=== PATIENT | male | born 1965 | race Caucasian/White ===

== ENCOUNTER → 2016-08-14 | Outpatient (CLI) | payer OTHER ==
--- NOTE | 2016-08-14 18:10 | RAD ---
HISTORY: Pain Study: Rest C-spine series Comparison: None Findings: Normal alignment of the thoracic spine is maintained. The disk space height is maintained without s ignificant endplate sclerosis. No evidence for acute fracture can be identified. IMPRESSION: 1. Negative exam. Reported By:
--- NOTE | 2016-08-14 18:12 | RAD ---
HISTORY: Pain Study: Lumbar spine series Comparison: None Findings: There is mild disc space narrowing throughout which is most prominent at L5-S1. There are mild scler otic changes of the facets inferiorly with no pars defects. The vertebral body height is well mainta ined throughout. The pedicles are intact. The bones are well mineralized. IMPRESSION: Mild degenerative disk changes throughout the lower lumbar spine and moderate osteoarthritic changes of the facets inferiorly with no acute abnormality seen. Reported By:
== END | disposition home or self-care (01) ==
LOC: RAD 17:17
PROVIDERS: ATTEND Nurse Practitioner Family
DX: M54.6 Pain in thoracic spine (principal); R25.8 Other abnormal involuntary movements; M51.9 Unspecified thoracic, thoracolumbar and lumbosacral intervertebral disc disorder
CPT/HCPCS: 72072; 72110

== ENCOUNTER → 2016-09-06 | Outpatient (CLI) | payer OTHER ==
--- NOTE | 2016-09-06 12:07 | MRI ---
HISTORY: Low back pain bilateral lower extremity weakness Study: MRI lumbar spine without contrast Comparison: Plain films August 14, 2016 Technique: Multiplanar multi-sequence MRI of the lumbar spine was obtained. Sagittal T1, sagittal T 2, and stir weighted images, axial T1, and axial T2 images were obtained. Findings: The lumbar spine demonstrates normal alignment with the expected signal characteristics of the bone marrow. The conus of the cord terminates normally. T12 -- L1: No evidence for compressive disc disease. The neural foramina are patent. The joints are normal. L1 -- L2: No evidence for compressive disc disease. The neural foramina are patent. The joints are n ormal. L2 -- L3: No evidence for compressive disc disease. The neural foramina are patent. The joints are n ormal. L3 -- L4: No evidence for compressive disc disease. The neural foramina are patent. The joints are n ormal. L4 -- L5: There is mild circumferential disc bulging which contributes along with pedicular shorteni ng and mild facet arthropathy to lateral recess and foraminal narrowing on the right and moderate la teral recess narrowing on the left. L5 -- S1: No evidence for compressive disc disease. The neural foramina are patent. The joints are n ormal. IMPRESSION: As above Reported By:
--- NOTE | 2016-09-06 12:13 | MRI ---
HISTORY: Thoracic spine pain, disk degeneration, lower extremity weakness Study: MRI thoracic spine without contrast Comparison: None Technique: Multi planar multi sequence non contrast imaging and diffusion imaging Findings: The prevertebral soft tissues are normal. The vertebral body alignment and bone signal is normal. Th e intervertebral discs are well hydrated. The thoracic spinal cord is normal in size and configurati on and without foci of abnormal signal or syrinx. The joints are normal. There is a focal leftward d isc protrusion at T6-7 which contributes to some foraminal narrowing on the left. There is a noncomp ressive disc protrusion at T7-8. No other disc protrusions are identified. No compressive spondyliti c change is identified. IMPRESSION: Focal leftward disc protrusion at T6 which causes some mild foraminal narrowing on the left. No other significant findings Reported By:
== END | disposition home or self-care (01) ==
LOC: RAD 08:42
PROVIDERS: ATTEND Nurse Practitioner Family
DX: M51.36 Other intervertebral disc degeneration, lumbar region (principal); M51.24 Other intervertebral disc displacement, thoracic region
CPT/HCPCS: 72146; 72148

== ENCOUNTER 2017-04-17 14:43 | Inpatient (IN) | payer OTHER ==
--- NOTE | 2017-04-17 18:45 | DR.H&P ---
H&P - History & Physical for Day of: H&P Date: 04/17/17 - Chief Complaint Chief Complaint: lilly, weakness, hypertension, dizziness, syncope - Allergies Allergies/Adverse Reactions: Allergies Allergy/AdvReac Type Severity Reaction Status Date / Time carisoprodol [From [facility]] Allergy Verified 04/17/17 18:37 Penicillins Allergy Verified 04/17/17 18:37 - History of Present Illness History of Present Illness: PT IS 51WM DIRECT ADMIT FROM DR BAUTISTA OFFICE WITH SYMPOMATIC CAROTID ARTERY STENOSIS. PT RECENTLY HAD TIA IN JANUARY WITH CONTIUED DIZZINESS WITH VISION CHANGES. PT HAD CAROTID ARTERY US IN OFFICE WITH HIGH GRADE STENOSIS. PT HAD PMH OF HTN, HYPERLIPIDEMIA, OA, GERD. PLAN TO ADMIT FOR TREATMENT AND EVALUATION OF ACUTE ILLNESS. - Past Medical History Past Medical History: Anxiety, Arthritis, COPD, GERD, Hypertension - Family History Family Medical History: Diabetes Mellitus, [place], Coronary Artery Disease, Hypertension - Social History Does patient currently use any type of tobacco product: Yes Have you used tobacco products in the last 12 months: Yes Type of Tobacco Use: Cigarettes Does any household member use tobacco: No Alcohol Use: None Drug Use: None - Review of Systems Constitutional: Weakness Eyes: Vision Change ENT: No Symptoms Reported Respiratory: Shortness of Breath, SOB with Excertion Cardiovascular: Chest Pain, Light Headedness Gastrointestinal: No Symptoms Reported Genitourinary: No Symptoms Reported Musculoskeletal: Back Pain, Neck Pain Skin: No Symptoms Reported Neurological: Other (DIZZINESS) - Physical Exam Vital Signs: Pulse Rate [Bilateral Radial] 96 Respiratory Rate 15 Blood Pressure [Left Arm] 135/73 Oriented: Normal Eyes: Normal Ear: Normal Nose: Normal Throat: Normal Respiratory: RLL Diminished, LLL Diminished Cardiovascular: Normal, Edema : Normal Auscultation: Bowel Sounds: Normal Palpation: Normal Tenderness: Normal Skin: Normal Musculoskeletal: Right, Left, Knee, Back:Thoracic, Back:Lumbar Psychiatric: Anxiety Affect: Anxious Speech Pattern: Clear, Appropriate - Assessment/Plan (1) TIA (transient ischemic attack) Status: Acute Plan: ADMIT ICU, CT HEAD, CTA CAROTID ARTERIES, SERIAL CARIDAC ENZYMES. EKG, TELEMETRY, PLAVIX AND ASA. BP CONTROL, LIPID CONTROL. RESUME HOME MEDS. NPO UNTIL AFTER DIAGNOSTIC TESTS. SUPPLEMENTAL O2 (2) TIA involving carotid artery Status: Acute (3) Hypertension Status: Acute (4) Chest pain Status: Acute (5) Arthritis Status: Acute
[2017-04-17 19:04] LABS: BASOPHILS # (AUTO) 0.1 X10^3/uL (0.0-0.1); BASOPHILS % (AUTO) 0.8 % (0.2-1.0); EOSINOPHILS # (AUTO) 0.1 x10^3/uL (0.0-0.2); EOSINOPHILS % (AUTO) 1.3 % (0.9-2.9); HEMATOCRIT 41.3 % (42.0-54.0); HEMOGLOBIN 14.3 g/dL (13.5-18.0); LYMPHOCYTES # (AUTO) 3.7 X10^3/uL (1.3-2.9); LYMPHOCYTES % (AUTO) 36.9 % (21.0-51.0); MEAN CORPUSCULAR HEMOGLOBIN 30.7 pg (27.0-34.0); MEAN CORPUSCULAR HGB CONC 34.6 g/dL (33.0-35.0); MEAN CORPUSCULAR VOLUME 88.7 fL (80.0-100.0); MEAN PLATELET VOLUME 8.5 fL (7.4-11.0); MONOCYTES # (AUTO) 0.8 x10^3/uL (0.3-0.8); MONOCYTES % (AUTO) 8.3 % (0.0-13.0); NEUTROPHILS # (AUTO) 5.2 x10^3/uL (2.2-4.8); NEUTROPHILS % (AUTO) 52.7 % (42.0-75.0); PLATELET COUNT 228 X10^3/uL (150.0-450.0); RED BLOOD COUNT 4.65 X10^6/uL (4.7-6.0); RED CELL DISTRIBUTION WIDTH 13.1 % (11.6-16.5); WHITE BLOOD COUNT 9.9 X10^3/uL (3.6-10.0)
[2017-04-17] MEDS: PLAVIX PO SCH (19:21)
[2017-04-17] MEDS: ASPIRIN PO SCH (19:21)
[2017-04-17] MEDS: LYRICA CAP 75 MG PO SCH ×2 (19:22→21:03)
[2017-04-17 19:24] LABS: BLOOD UREA NITROGEN 12 mg/dL (7-18); CALCIUM 8.7 mg/dL (8.5-10.1); CARBON DIOXIDE 28.5 mmol/L (21-32); CHLORIDE 101 mmol/L (98-107); COR NA(FOR HYPERGLY) 139 mmol/L (136-145); CREATININE 1.06 mg/dL (0.70-1.30); SODIUM 139 mmol/L (136-145); TROPONIN I < 0.02 ng/mL (0-1.5); eGFR BLACK RACES > 60 (>60); eGFR NON BLACK RACES > 60 (>60)
[2017-04-17 19:28] LABS: ALANINE AMINOTRANSFERASE 35 Units/L (12-78); ALBUMIN 3.9 g/dL (3.4-5.0); ALKALINE PHOSPHATASE 38 Units/L (46-116); ASPARTATE AMINO TRANSFERASE 21 Units/L (15-37); CKMB % 0.6 % (<4); CREATINE KINASE 188 Units/L (39-308); CREATINE KINASE MB 1.1 ng/mL (0-4.0); MAGNESIUM 1.9 mg/dL (1.7-2.9)
--- NOTE | 2017-04-17 19:52 | RAD ---
HISTORY: Chest pain, dizziness Study: Single-view of the chest Comparison: None Findings: The trachea is midline. The cardiac silhouette is at the upper limits of normal. The lungs are darcie r without focal infiltrate or effusion. IMPRESSION: 1. No acute cardiopulmonary disease. Reported By:
[2017-04-17 19:53] LABS: BILIRUBIN,URINE NEGATIVE (NEGATIVE); BLOOD/HEMOGLOBIN,URINE 1+ (NEGATIVE); GLUCOSE, URINE NEGATIVE (NEGATIVE); KETONES,URINE NEGATIVE (NEGATIVE); LEUKOCYTE ESTERASE ,URINE NEGATIVE (NEGATIVE); NITRITES,URINE NEGATIVE (NEGATIVE); PH,URINE 6.5 (5.0 - 8.0); PROTEIN,URINE NEGATIVE (NEGATIVE); UROBILINOGEN,URINE NORMAL (NORMAL)
[2017-04-17 20:06] LABS: APPEARANCE,URINE CLEAR (CLEAR); COLOR,URINE YELLOW (YELLOW); RBC,URINE 0-3 /HPF (NONE SEEN)
[2017-04-17 20:07] LABS: BACTERIA,URINE NEGATIVE /HPF (NEGATIVE); SQUAMOUS EPITHELIAL CELL,UR RARE /HPF (NEGATIVE)
[2017-04-17] MEDS: PERCOCET TAB 5/325 MG PO PRN (21:10)
[2017-04-17 21:43] VITALS: BMI 39.1
[2017-04-17] MEDS: NICOTINE PATCH TD SCH (22:33)
[2017-04-18 01:42] LABS: CKMB % 0.7 % (<4); CREATINE KINASE 149 Units/L (39-308); TROPONIN I < 0.02 ng/mL (0-1.5)
[2017-04-18 07:31] LABS: BASOPHILS % (AUTO) 0.6 % (0.2-1.0); EOSINOPHILS # (AUTO) 0.1 x10^3/uL (0.0-0.2); EOSINOPHILS % (AUTO) 1.7 % (0.9-2.9); LYMPHOCYTES # (AUTO) 3.4 X10^3/uL (1.3-2.9); LYMPHOCYTES % (AUTO) 44.7 % (21.0-51.0); MEAN CORPUSCULAR HEMOGLOBIN 30.8 pg (27.0-34.0); MEAN CORPUSCULAR HGB CONC 34.9 g/dL (33.0-35.0); MEAN CORPUSCULAR VOLUME 88.3 fL (80.0-100.0); MEAN PLATELET VOLUME 8.7 fL (7.4-11.0); MONOCYTES # (AUTO) 0.7 x10^3/uL (0.3-0.8); MONOCYTES % (AUTO) 9.3 % (0.0-13.0); NEUTROPHILS # (AUTO) 3.3 x10^3/uL (2.2-4.8); NEUTROPHILS % (AUTO) 43.7 % (42.0-75.0); PLATELET COUNT 224 X10^3/uL (150.0-450.0); RED BLOOD COUNT 4.53 X10^6/uL (4.7-6.0); RED CELL DISTRIBUTION WIDTH 13.1 % (11.6-16.5); WHITE BLOOD COUNT 7.5 X10^3/uL (3.6-10.0)
[2017-04-18 07:53] LABS: ALANINE AMINOTRANSFERASE 36 Units/L (12-78); ALBUMIN 3.7 g/dL (3.4-5.0); ALKALINE PHOSPHATASE 35 Units/L (46-116); ASPARTATE AMINO TRANSFERASE 21 Units/L (15-37); BLOOD UREA NITROGEN 12 mg/dL (7-18); CALCIUM 8.5 mg/dL (8.5-10.1); CARBON DIOXIDE 28.8 mmol/L (21-32); CHLORIDE 102 mmol/L (98-107); CHOL/HDL RATIO 8.5 (0.0-5.0); CHOLESTEROL 220 mg/dL (0-200); COR NA(FOR HYPERGLY) 140 mmol/L (136-145); CREATININE 1.01 mg/dL (0.70-1.30); HDL CHOLESTEROL 26 mg/dL (40-60); SODIUM 140 mmol/L (136-145); TOTAL PROTEIN 7.4 g/dL (6.4-8.2); TRIGLYCERIDES 278 mg/dL (0-150); eGFR BLACK RACES > 60 (>60); eGFR NON BLACK RACES > 60 (>60)
[2017-04-18 08:07] LABS: CKMB % 0.7 % (<4); CREATINE KINASE 148 Units/L (39-308); CREATINE KINASE MB < 1.0 ng/mL (0-4.0); TROPONIN I < 0.02 ng/mL (0-1.5)
[2017-04-18] MEDS: PLAVIX PO SCH (08:24)
[2017-04-18] MEDS: BENICAR TAB 40 MG PO SCH (08:24)
[2017-04-18] MEDS: LYRICA CAP 75 MG PO SCH ×2 (08:24→21:48)
[2017-04-18] MEDS: ASPIRIN PO SCH (08:24)
[2017-04-18] MEDS: NICOTINE PATCH TD SCH (08:25)
[2017-04-18] MEDS: CHECK PATCH XX SCH ×2 (08:26→21:48)
[2017-04-18] MEDS ORDERED: MORPHINE SULFATE INJ 2 MG INJ IVP PRN (09:21)
--- NOTE | 2017-04-18 11:35 | CT ---
HISTORY: Hypertension, carotid artery stenosis, and TIA. Study: CT brain without contrast Comparison: None. Technique: Multiple axial images of the brain were obtained from the skull base to the vertex without administra tion of IV contrast. Dose reduction techniques including Automated Exposure Control (AEC) and adjust ment of mA and kV were utilized. Findings: No acute intraparenchymal hemorrhage or mass can be identified. No extra-axial fluid collections are seen. No alteration in the attenuation of the brain parenchyma can be identified to suggest acute o r subacute ischemic change. The ventricular system is symmetric and nondilated. The extracranial st ructures are grossly unremarkable. IMPRESSION: No obvious acute intracranial pathology. If clinically concerned for acute ischemia/infar ction, MRI brain is more sensitive. Reported By:
--- NOTE | 2017-04-18 11:55 | CT ---
HISTORY: Hypertension, carotid artery stenosis, and TIA. Study: CTA neck with contrast Comparison: CT head dated same day. Technique: Multiple axial images of the soft tissue neck were obtained from skull base to the aortic arch after the administration of IV contrast. Sagittal and coronal reformats were performed and revi ewed. MIP images were performed. Dose reduction techniques including Automated Exposure Control (AEC ) and adjustment of mA and kV were utilized. Findings: The visualized portions of the posterior fossa and orbits are unremarkable in appearance. The paroti d glands, submandibular glands, and thyroid gland are unremarkable in their contrast appearance. The carotid space on the right and left is unremarkable. No mass or significant lymphadenopathy can be identified. The prevertebral and paraspinous regions are unremarkable. The nasopharynx, oropharynx, hypopharynx are unremarkable. The larynx appears symmetric. There is near complete occlusion of th e right internal carotid artery from its origin to the [place]. There is visualized trace fl ow. There is approximately 60% stenosis of the left internal carotid artery at its origin. Mild bilat eral atherosclerotic vascular calcifications and mural thrombus at the bilateral carotid bulbs. Remai roc visualized vascular structures appear normal. The vertebral arteries are codominant. Mild centr ilobular emphysematous changes of the lung apices. The osseous structures appear intact. IMPRESSION: 1. Near complete occlusion of the right internal carotid artery and approximately 60% stenosis of the left internal carotid artery as above. 2. Remaining exam is unremarkable. Reported By:
[2017-04-18] MEDS ORDERED: HEPARIN SODIUM INJ 5000 UNITS ONE (18:21)
[2017-04-18] MEDS ORDERED: HEPARIN SODIUM INJ 5000 UNITS IVP ONE (18:30)
[2017-04-18] MEDS: HEPARIN SODIUM IN D5W 25,000 UNITS/500 ML BAG IV PRN (18:32)
[2017-04-18] MEDS: PERCOCET TAB 5/325 MG PO PRN (21:50)
[2017-04-19] MEDS ORDERED: HEPARIN SODIUM INJ 5000 UNITS IVP ONE (01:21)
[2017-04-19] MEDS: PERCOCET TAB 5/325 MG PO PRN ×2 (05:08→10:33)
[2017-04-19 07:34] LABS: BASOPHILS # (AUTO) 0.1 X10^3/uL (0.0-0.1); BASOPHILS % (AUTO) 0.9 % (0.2-1.0); EOSINOPHILS # (AUTO) 0.1 x10^3/uL (0.0-0.2); EOSINOPHILS % (AUTO) 1.2 % (0.9-2.9); HEMATOCRIT 40.5 % (42.0-54.0); LYMPHOCYTES # (AUTO) 3.6 X10^3/uL (1.3-2.9); LYMPHOCYTES % (AUTO) 42.6 % (21.0-51.0); MEAN CORPUSCULAR HEMOGLOBIN 30.6 pg (27.0-34.0); MEAN CORPUSCULAR HGB CONC 34.7 g/dL (33.0-35.0); MEAN CORPUSCULAR VOLUME 88.3 fL (80.0-100.0); MEAN PLATELET VOLUME 8.6 fL (7.4-11.0); MONOCYTES # (AUTO) 0.7 x10^3/uL (0.3-0.8); MONOCYTES % (AUTO) 8.6 % (0.0-13.0); NEUTROPHILS % (AUTO) 46.7 % (42.0-75.0); PLATELET COUNT 207 X10^3/uL (150.0-450.0); RED BLOOD COUNT 4.58 X10^6/uL (4.7-6.0); RED CELL DISTRIBUTION WIDTH 13.1 % (11.6-16.5); WHITE BLOOD COUNT 8.5 X10^3/uL (3.6-10.0)
[2017-04-19 07:38] LABS: ALANINE AMINOTRANSFERASE 39 Units/L (12-78); ALBUMIN 3.6 g/dL (3.4-5.0); ALKALINE PHOSPHATASE 35 Units/L (46-116); ASPARTATE AMINO TRANSFERASE 25 Units/L (15-37); BLOOD UREA NITROGEN 13 mg/dL (7-18); CALCIUM 8.4 mg/dL (8.5-10.1); CARBON DIOXIDE 27.8 mmol/L (21-32); CHLORIDE 100 mmol/L (98-107); COR NA(FOR HYPERGLY) 138 mmol/L (136-145); CREATININE 1.05 mg/dL (0.70-1.30); SODIUM 137 mmol/L (136-145); TOTAL PROTEIN 7.4 g/dL (6.4-8.2); eGFR BLACK RACES > 60 (>60); eGFR NON BLACK RACES > 60 (>60)
[2017-04-19] MEDS: PLAVIX PO SCH (08:59)
[2017-04-19] MEDS: ASPIRIN PO SCH (08:59)
[2017-04-19] MEDS: LYRICA CAP 75 MG PO SCH (09:00)
[2017-04-19] MEDS: HEPARIN SODIUM IN D5W 25,000 UNITS/500 ML BAG IV PRN (09:06)
[2017-04-19] MEDS: CHECK PATCH XX SCH (09:27)
[2017-04-19] MEDS: BENICAR TAB 40 MG PO SCH (09:27)
[2017-04-19] MEDS: NICOTINE PATCH TD SCH (09:27)
[2017-04-19 11:07] VITALS: BP 105/70
== END 2017-04-19 11:00 | disposition short-term general hospital (02) | DRG 69 ==
LOC: ICU 14:43 → OBSVTOIN 14:43
PROVIDERS: ADMIT Internal Medicine; ATTEND Internal Medicine
DX: G45.8 Other transient cerebral ischemic attacks and related syndromes (principal); R51 Headache; R53.1 Weakness; I10 Essential (primary) hypertension; R55 Syncope and collapse; I25.10 Atherosclerotic heart disease of native coronary artery without angina pectoris; E78.2 Mixed hyperlipidemia; K21.9 Gastro-esophageal reflux disease without esophagitis; J44.9 Chronic obstructive pulmonary disease, unspecified; M19.90 Unspecified osteoarthritis, unspecified site; M51.36 Other intervertebral disc degeneration, lumbar region; M50.80 Other cervical disc disorders, unspecified cervical region
CPT/HCPCS: 36415; 70450; 70498; 71045; 80053; 80061; 81001; 82550; 82553; 83735; 84484; 85025; 85610; 85730; 93005; 93010; A4216; A4222; J1644; J2270